=== PATIENT | female | born 1975 | race Asian ===

== ENCOUNTER 2023-07-05 07:05 | Day surgery (SDC) | payer MEDICAID ==
[~2023-07-05] VITALS: Ht 162.6 cm; Wt 62.6 kg
[2023-07-05 07:36] LABS: HCG,QUAL RESULT NEGATIVE (NEGATIVE)
[2023-07-05] MEDS ORDERED: SIMETHICONE 40 MG/0.6 ML ML ONE (07:48)
[2023-07-05] MEDS ORDERED: MEPERIDINE 100 MG INJ. 100 MG/ML VIAL ONE (07:49)
[2023-07-05] MEDS ORDERED: MIDAZOLAM HCL 5 MG/5 ML VIAL ONE (07:49)
[2023-07-05] MEDS ORDERED: BENZOCAINE 20% 0.5mL UD SPRAY MM ONE (07:50)
[2023-07-05 10:38] VITALS: O2SAT 99
[2023-07-05 12:10] VITALS: BP_SYST 118; PULSE 68; RESP 18
== END 2023-07-06 09:55 | disposition home or self-care (01) ==
LOC: SDS 07:05 → SMU 07:06 → SDS 07-06 09:55
PROVIDERS: ATTEND Internal Medicine
DX: R19.4 Change in bowel habit (principal); R10.9 Unspecified abdominal pain; K21.9 Gastro-esophageal reflux disease without esophagitis; K31.A0 Gastric intestinal metaplasia, unspecified; K64.0 First degree hemorrhoids; E11.9 Type 2 diabetes mellitus without complications; Z79.84 Long term (current) use of oral hypoglycemic drugs; Z79.899 Other long term (current) drug therapy; Z91.040 Latex allergy status; Z85.3 Personal history of malignant neoplasm of breast; Z80.0 Family history of malignant neoplasm of digestive organs; Z92.3 Personal history of irradiation
CPT/HCPCS: 45380; 43239; 99152; 84703; 82948; 88305; 88312; 88313; 99153; G0378; J2250; J2175